=== PATIENT | male | born 1970 | race Caucasian/White ===

== ENCOUNTER 2024-11-14 13:10 | Emergency (ER) | payer OTHER, SELFPAY ==
[2024-11-14 13:48] VITALS: BP 117/76; PULSE 81; RESP 18; TEMP 36.4; O2SAT 96; BMI 33.7
--- NOTE | 2024-11-14 13:50 | CRLHL7_ITS ---
For Patients: As a result of the Century Cures Act, medical imaging exams and procedure reports are released immediately into your electronic medical record. You may view this report before your referring provider. If you have questions, please contact your health care provider. INDICATION: Fall, foot injury TECHNIQUE: Foot radiograph 2 views right COMPARISON: None FINDINGS: Bone: No acute fractures or aggressive bone lesions are identified. Joint: The visualized hindfoot, midfoot, and forefoot joints are unremarkable in appearance. No significant ankle effusion is seen. Soft tissue: Unremarkable. No radiopaque foreign bodies are seen. IMPRESSION: 1. No acute osseous injuries or abnormalities are noted. Prelim Report By Dr. Jose Ramon Sherman @ 11/14/2024 2:52:16 PM ADDENDUM There is an ill-defined 3 mm density along the lateral midfoot near the cuboid. Correlation with physical exam for focal tenderness in this region is recommended to exclude an avulsion fracture fragment. Dictated by: MD @ 11/14/2024 14:54:44 (Electronically Signed)
--- NOTE | 2024-11-14 13:52 | CRLHL7_ITS ---
For Patients: As a result of the Century Cures Act, medical imaging exams and procedure reports are released immediately into your electronic medical record. You may view this report before your referring provider. If you have questions, please contact your health care provider. INDICATION: Fall, ankle injury TECHNIQUE: Ankle radiograph 3 views right COMPARISON: None FINDINGS: Bone: There is an ill-defined 3 mm density along the lateral midfoot near the cuboid. Joint: The ankle mortise joint and the visualized hindfoot joints are unremarkable in appearance. No significant ankle effusion is seen. Soft tissue: The Kager fat pad and the Achilles` tendon are normal in appearance. No radiopaque foreign bodies are seen. IMPRESSION: 1. There is an ill-defined 3 mm density along the lateral midfoot near the cuboid. Correlation with physical exam for focal tenderness in this region is recommended to exclude an avulsion fracture fragment. Dictated by Jose Ramon Sherman MD @ 11/14/2024 2:53:50 PM Dictated by: Jose Ramon Sherman MD @ 11/14/2024 14:53:56 (Electronically Signed)
--- NOTE | 2024-11-14 14:25 | ED.GENADULT ---
HPI - General Adult General Chief complaint: Extremity Pain/Injury, Lower Stated complaint: Right ankle injury Time Seen by Provider: 11/14/24 13:50 History of Present Illness HPI narrative: Patient is a 54-year-old gentleman who turned his ankle getting out of his pickup today. He stepped on uneven ground shortly before coming in. He has pain over the lateral aspect of his malleolus inferiorly but no overt bony pain. He has no foot her knee pain. He has minimal swelling. He is wearing compression stockings. He did not fall and did not hit his head. No skin breakdown. Pain is moderate. Related Data Allergies Allergy/AdvReac Type Severity Reaction Status Date / Time Sulfa (Sulfonamide Allergy Intermediate Rash Verified 11/14/24 13:44 Antibiotics) sulfamethoxazole (From Allergy Intermediate Rash Verified 11/14/24 13:44 Bactrim) trimethoprim (From Bactrim) Allergy Intermediate Rash Verified 11/14/24 13:44 Review of Systems Status of ROS: Reports: 6 or more systems reviewed and unremarkable except as noted in History and below Exam Narrative: Exam Narrative: EXAM GENERAL: Patient appears comfortable and well. EYES: No scleral icterus. LYMPH: No supraclavicular or cervical lymphadenopathy. SKIN: Visible skin seen during exam normal or with benign process only. EXT: No dependent lower extremity pedal edema. No pain to palpation of the right ankle moderate pain with weight-bearing. PSYCH: Good eye contact, speech is not pressured. Const: Vital Signs, click to edit/add: Vital Signs - 24 hr 11/14/24 13:48 Temperature 97.6 F Pulse Rate [Pulse Oximeter] 81 Respiratory Rate 18 Blood Pressure [Ri ght Upper Arm] 117/76 Pulse Oximetry 96 Oxygen Delivery Me thod Room Air Course Course ED Course: X-ray series collected in shows no fractures or dislocations upon my review. This time reassurance is offered. Would recommend continue compression with his compression stocking. Ice Tylenol Motrin advanced activity as tolerated. Follow-up with his primary physician as needed differential diagnosis includes but not limited to sprain strain fracture dislocation. Vital Signs Vital signs: Initial Vital Signs Temperature 97.6 F 11/14/24 13:48 Temperature Source Temporal Artery Scan 11/14/24 13:48 Pulse Rate 81 11/14/24 13:48 Respiratory Rate 18 11/14/24 13:48 Blood Pressure 117/76 11/14/24 13:48 Blood Pressure Mean 89 11/14/24 13:48 Pulse Oximetry 96 11/14/24 13:48 Oxygen Delivery Method Room Air 11/14/24 13:48 Vital Signs Temperature 97.6 F 11/14/24 13:48 Pulse Rate 81 11/14/24 13:48 Respiratory Rate 18 11/14/24 13:48 Blood Pressure 117/76 11/14/24 13:48 Pulse Oximetry 96 11/14/24 13:48 Oxygen Delivery Method Room Air 11/14/24 13:48 Temperature 97.6 F 11/14/24 13:48 Pulse Rate 81 11/14/24 13:48 Respiratory Rate 18 11/14/24 13:48 Blood Pressure 117/76 11/14/24 13:48 Pulse Oximetry 96 11/14/24 13:48 Oxygen Delivery Method Room Air 11/14/24 13:48 Discharge Plan Discharge Clinical Impression: Ankle sprain and strain Patient Disposition: Home, Self-Care Condition: Stable Instructions: Ankle Sprain (ED) Additional Instructions: Continue compression stockings Tylenol Motrin Ice Advance activity as tolerated. Follow-up with your doctor as needed. Activity Level: Activity as Tolerated Discharge Diet: Regular Stand Alone Forms: MyHealth Info Instructions
--- OUTSIDE RECORDS SUMMARY | 2024-11-14 15:10 | XMS_ITS | Clinical Summary ---
Author Organization [facility] Address [address] [place] [id number] Care Team Providers Care Beet Worker Name Role Phone [facility], [facility] Primary Care Provider Unavailable Allergies Active Allergy Reactions Criticality Noted Date Comments Adhesive Tape-Silicones Rash 04/11/2021 Sulfamethoxazole-Trimethoprim Rash 2007 Medications acetaminophen (TYLENOL) 325 mg tablet Take 325-650 mg by mouth every 4 hours if needed. Active albuterol HFA (PRO-AIR; VENTOLIN; PROVENTIL) 90 mcg/actuation inhaler Inhale 2 Puffs by mouth every 4 hours if needed. Active bisacodyL (DULCOLAX) 5 mg delayed release tablet Take 5 mg by mouth once daily if needed. Active cetirizine (ZYRTEC) 10 mg tablet Take 10 mg by mouth once daily. Active flecainide (TAMBOCOR) 100 mg tablet Take 100 mg by mouth every 12 hours. 07/04/20 20 Active multivitamins with minerals tablet Take 1 Tablet by mouth once daily. Active pantoprazole (PROTONIX) 40 mg delayed-release tablet Take 40 mg by mouth once daily. Active testosterone cypionate (DEPO-TESTOSTERON E) 200 mg/mL injection Every 3 weeks Active USTEKINUMAB SUBQ Inject subcutaneous every 8 weeks. 01/01/20 21 Active cholecalciferol, Vitamin D3, 2,000 unit tablet Take 1 Tablet by mouth once daily. 10/21/19 20 Active metoprolol succinate (Toprol XL) 50 mg sustained-release tablet Take 25 mg by mouth once daily. Active fish oil-omega-3 fatty acids (Fish Oil) 1,200-360 mg cap Take 1 Capsule by mouth once daily. One capsule is 1200 mg-360 mg Active Magnesium Oxide 500 mg tab Take 500 mg by mouth once daily. Active mesalamine (CANASA) 1,000 mg suppository Insert 1,000 mg rectally once daily if needed for Other (Specify). Active WalkerIndications :Herniated nucleus pulposus, L5-S1, left Walker with front wheels for home use. 1 Each 04/14/20 21 Active methocarbamoL (ROBAXIN) 750 mg tabletIndications :S/P lumbar spinal fusion Take 1 Tablet (750 mg) by mouth every 6 hours if needed for Muscle Spasm. 20 Tablet 04/15/2021 10:10 AM CDT 04/15/20 21 Active oxyCODONE (ROXICODONE) 5 mg immediate release tabletIndications :S/P lumbar spinal fusion Take 1-2 Tablets (5-10 mg) by mouth every 4 hours if needed for moderate pain. 30 Tablet 04/15/2021 10:10 AM CDT 04/15/20 21 Active sennosides-docusa te (SENOKOT S) (8.6-50 mg) tabletIndications :Acute postoperative pain Take 1-4 Tablets by mouth 2 times daily. 30 Tablet 04/15/2021 11:28 AM CDT 04/15/20 21 Active Active Problems Problem Noted Date Diagnosed Date Herniated nucleus pulposus, L5-S1, left 04/05/20 21 Perirectal abscess 08/27/2011 Ventral hernia 12/01/2010 Ileus, postoperative 05/03/2010 Nausea with vomiting 05/03/2010 RUQ abdominal pain 05/03/2010 Hearing loss 09/12/2009 Major depression, single episode 07/18/2009 Anxiety 06/27/2009 Ulcerative colitis 11/15/2008 Fatigue 11/15/2008 History of tobacco use 06/22/2008 Overview (06/22/2008): Quit 2006; 1 ppd X 15 years Other chest pain 06/22/2008 Overview (06/22/2008): 06/22/08: left sided chest pain; can get worse with exertion Shortness of breath 06/22/2008 Pain in joint, shoulder region Asthma Headache(784.0) Acute postoperative pain Postoperative back pain S/P lumbar spinal fusion Rheumatoid arthritis CFS (chronic fatigue syndrome) ROXANNE on CPAP Class 2 severe obesity with serious comorbidity and body mass index (BMI) of 37.0 to 37.9 in adult Immunizations Immunization Administration Dates Next Due COVID-19 vaccine (Moderna 100mcg/0.5mL) PF, MDV 12/01/2020,11/03/2020 Influenza, IIV3 (Age >=3 years) 12/02/2010 Td (Age >=7 Years) 01/20/2001 Tdap 08/22/2009 Family History Medical History Relation Name Comments Cancer Maternal Grandmother Thyroid Disease Mother Thyroid Disease Sister 2 Relation Name Status Comments Child 1 Alive Child 2 Alive Father Alive Maternal Grandmother Mother Alive Sister 1 Alive Sister 2 Social History Tobacco Use Types Packs/Day Years Used Date Smoking Tobacco: Former Cigarettes 1 15 2009 Smokeless Tobacco: Never Comments:06/22/08: quit 1 ye ar ago (used Chantix) Alcohol Use Standard Drinks/Week Comments Not Currently 0 (1 standard drink = 0.6 oz pur e alcohol) rare Sex and Gender Information Value Date Recorded Sex Assigned at Not on file Legal Sex Male 5:47 AM [employer]NAL [employer] Gender Identity Not on file Sexual Orientation Not on file 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 file Not on file Not on file Obstetrics History Last Filed Vital Signs Vital Sign Reading Time Taken Comments Blood Pressure 125/91 04/15/2021 8:00 AM CDT Pulse 69 04/15/2021 8:00 AM CDT Temperature 36.7 C (98 F) 04/15/2021 8:00 AM CDT Respiratory Rate 18 04/15/2021 8:00 AM CDT Oxygen Saturation 99% 04/15/2021 8:00 AM CDT Inhaled Oxygen Concentration - - Weight 118.7 kg (261 lb 11 oz) 04/12/2021 6:00 A M CDT Height 177.8 cm (5' 10) 04/12/2021 6:00 AM CDT Body Mass Index 37.55 04/12/2021 6:00 AM CDT Plan of Treatment Health Maintenance Due Date Last Done Comments Depression screening for age 12+ 1980 HIV for age 15-65 1983 BMI (ht and wt on same day) for age 18+ 1986 Hepatitis C screening for age 18-79 1986 Colonoscopy through age 75 2013 Lipids for age 45-75 11/21/2014 11/21/2009 Pneumococcal series for age 50+ (1 of 1 - PCV) 2018 Zoster (shingles) series for age 50+ (1 of 2) 2018 Tetanus booster 08/22/2019 08/22/2009, 01/20/2001 COVID-19 vaccine series ( season) 2024 12/01/2020, 11/03/2020 Influenza Vaccine (Season Ended) 2025 12/03/19 11 Tdap Completed 08/22/2009 Medical Devices Implanted Type Area Hydro Operator Device Identifier Shelf Expiration Date Model / Serial / Lot Link Lmbr 40x5.5mm Tsrh 3d Cvd Titnm - [id number] Implanted:Qty: 2 on 04/12/2021 by Amaury Pettit MD at [facility] Spine Implants Spine Medtronic Spine/Ortho [id number] / / Mesh 4x8 Bioresorbable - [id number] Implanted:Qty: 1 on 11/30/2010 at [facility] N/A: Abdomen DAVOL 08/02/2012 [id number] / / [id number] one Matrix 10cc [employer] Putty Dbm Implanted:Qty: 1 on 04/12/2021 by Amaury Pettit MD at [facility] Explanted:at [facility] (Quantity not on file) Spine Medtronic Spine/Ortho 02/12/2024 [id number] / [id number] / [id number] one 1-4mm 30cc Medtronic Chips Canclls Freeze Dried Implanted:Qty: 1 on 04/12/2021 by Amaury Pettit MD at [facility] Explanted:at [facility] (Quantity not on file) Spine Medtronic Spine/Ortho 07/13/2025 [id number] / [id number] / Spacer Lmbr [id number] 10 Deg Elevate Extra-Lordotic Peek Titn - [id number] Implanted:Qty: 1 on 04/12/2021 by Amaury Pettit MD at [facility] Spine [employer] Spine/Ortho 05/08/2028 [id number] / / [id number] Set Screw Lmbr Tsrh 3dx - [id number] Implanted:Qty: 4 on 04/12/2021 by Amaury Pettit MD at [facility] Spine [employer]onic Spine/Ortho [id number] / / Cnnctr Lmbr Sm Tsrh 3dx Offsettitnm - [id number] Implanted:Qty: 4 on 04/12/2021 by Amaury Pettit MD at [facility] Spine [employer]onic Spine/Ortho [id number] / / Screw Lmbr Post 6.5x45mm Tsrh 3dx Og Thin Va - [id number] Implanted:Qty: 1 on 04/12/2021 by Amaury Pettit MD at [facility] Spine [employer] Spine/Ortho [id number] / / Screw Lmbr Post 6.5x50mm Tsrh 3dx Og Thin Va - [id number] Implanted:Qty: 1 on 04/12/2021 by Amaury Pettit MD at [facility] Spine [employer] Spine/Ortho [id number] / / Screw Lmbr Post 7.5x45mm Tsrh 3dx Og Thin Va - [id number] Implanted:Qty: 2 on 04/12/2021 by Amaury Pettit MD at [facility] Spine [employer] Spine/Ortho [id number] / / Procedures Procedure Name Priority Date/Time Associated Diagnosis Comments LIPID PANEL W REFLEX MEASURED LDL Routine 11/21/2009 9:51 AM CDT Elevated cholesterol from Last 3 Months or Most Recently Relevant to Health Maintenance Results * LIPID PANEL W REFLEX MEASURED LDL (11/21/2009 9:51 AM CDT) CHOLESTEROL,TOTAL 190 110 - 199 mg/dL [facility] TRIGLYCERIDES 124 40 - 149 mg/dL [facility] HDL CHOLESTEROL 48 >40 mg/dL [facility] CHOL/HDL RATIO 3.96 <4.51 [facility] LDL CHOLESTEROL 117 <131 mg/dL [facility] PATIENT STATUS Fasting [facility] Blood specimen (specimen) BLOOD SPECIMEN / Unknown 11/21/2009 9:51 AM CDT 11/21/2009 9:43 AM CDT us Brenda QUEZADA CHEMISTRY Final Result [facility] [place]NAL ZIP [id number] [place] [id number] from Last 3 Months or Most Recently Relevant to Health Maintenance Insurance [facility] ADV[employer]AGE PLAN Advance Directives * Full Code (Latest Code Status on File) Date Activated Date Inactivated Comments 04/12/2021 10:53 AM 04/15/2021 2:35 PM Question Answer Comments Code Status Discussion: Not Discussed * Full Code Date Activated Date Inactivated Comments 04/12/2021 5:53 AM 04/12/2021 10:53 AM Question Answer Comments Code Status Discussion: Not Discussed * Full Code Date Activated Date Inactivated Comments 07/14/2015 12:38 PM 07/14/2015 4:46 PM * Full Code Date Activated Date Inactivated Comments 08/27/2011 5:40 PM 08/27/2011 10:44 PM * Full Code Date Activated Date Inactivated Comments 11/30/2010 9:39 AM 12/07/2010 7:16 PM Care Teams Beet Worker Relationship Specialty Start Date End Date Clinic, [facility] PCP - General Family Practice 03/22/21
--- OUTSIDE RECORDS SUMMARY | 2024-11-14 15:10 | XMS_ITS | Clinical Summary ---
Author Organization [facility] Address [address] [place] [id number] Care Team Providers Care Preschool Principal Name Role Phone Mini Moreira MD Primary Care Provider Allergies Active Allergy Reactions Criticality Noted Date Comments Adhesive Tape-Silicones Rash 04/11/2021 Sulfamethoprim Ds Rash 08/24/2014 Nsaids (Non-Steroidal Anti-I nflammatory Drug) Other Low 02/25/2022 Crohns Silicon Rash Low 03/08/2024 Medications testosterone cypionate (DEPO-TESTOSTERON E) 200 mg/mL IM Oil Inject 1 mL (200 mg) into the muscle every 21 (twenty-one) days. Active albuterol HFA 90mcg/puff (PROVENTIL;VENTOL IN HFA) 90 mcg/actuation Inhl Inhale 2 puffs every 4 (four) hours as needed. Active cetirizine (ZYRTEC) 10 mg Oral Tab 1 tablet (10 mg) once daily. 3 6 Active pantoprazole (PROTONIX) 40 mg oral delayed release tablet Take 1 tablet (40 mg) by mouth once daily. 6 Active ustekinumab (STELARA SUBQ) Inject 90 mg under the skin as directed. every 6 weeks. 1 Active Magnesium Oxide 500 mg oral Tab Take 500 mg by mouth once daily. Active simethicone (MYLICON) 80 mg oral chewable tablet 1 tablet (80 mg) every 6 (six) hours as needed. 1 Active buPROPion (WELLBUTRIN) 100 mg oral tablet 1 tablet (100 mg) once daily. 2 Active PARoxetine (PAXIL) 30 mg oral tablet Take 1 tablet (30 mg) by mouth once daily. 2 Active Medical Cannabis Take 600 mg by mouth at bedtime. 300mg capsules 2 Active L.acidophilus/B.b ifidum,longum (PROBIOTIC COLON SUPPORT ORAL) Take 1 capsule by mouth once daily. 2 Active ferrous sulfate (FERATAB) 325 mg (65 mg iron) oral tablet 1 tablet (325 mg) every other day. 2 Active docusate sodium (COLACE) 100 mg oral capsule Take 1 capsule (100 mg) by mouth twice a day. Active cholecalciferol (VITAMIN D3) 400 unit (10 mcg) oral Tab tablet Take 1 tablet (10 mcg) by mouth twice a day. Active acetaminophen (TYLENOL) 500 mg oral tablet Take 2 tablets (1,000 mg) by mouth every 6 (six) hours. 0 2 Active flecainide (TAMBOCOR) 100 mg oral tablet Take 1 tablet (100 mg) by mouth twice a day. 180 tablet 3 3 Active metoprolol succinate, XL, (TOPROL XL) 25 mg oral extended release tablet 24 HRIndications:Par oxysmal atrial fibrillation (HCC) Take 1 tablet (25 mg) by mouth once daily. 90 tablet 3 3 Active gabapentin (NEURONTIN) 300 mg oral capsule 2 capsules (600 mg). 3 Active gabapentin (NEURONTIN) 100 mg oral capsule 12 capsules (1,200 mg) Daily. Active amLODIPine (NORVASC) 2.5 mg oral tablet 4 Active amoxicillin-pot clavulanate (AUGMENTIN) 875-125 mg oral tablet 4 Active citalopram (CELEXA) 10 mg oral tablet Take 1 tablet (10 mg) by mouth Daily. Active diclofenac sodium (VOLTAREN) 1 % Top gel Apply to skin. Active DULoxetine (CYMBALTA) 60 mg oral delayed release capsule Take 1 capsule (60 mg) by mouth Daily. Active Sodium Fluoride 1.1 % Boone cream 4 Active salsalate (DISALCID) 500 mg oral Tab 4 Active sildenafiL (VIAGRA) 25 mg oral tablet 4 Active semaglutide (WEGOVY) 0.5 mg/0.5 mL SubQ pen injector Inject 0.5 mg under the skin every 7 (seven) days. Active Active Problems Problem Noted Date Diagnosed Date Primary hypertension 05/12/2024 Obesity, morbid 05/12/2024 LUA (nonalcoholic steatohepatitis) 09/19/2022 Orthopedic aftercare 07/23/2022 L5-S1 Miscellaneous orthopedic devices assoc w i ncdt, NEC 07/22/2022 Obsessive-compulsive disorder 10/18/2021 Sensorineural hearing loss (SNHL) of both ears 0 09/06/2021 Rheumatoid arthritis 09/06/2021 Kidney disorder 09/06/2021 Gastroesophageal reflux disease 09/06/2021 Decreased testosterone level 09/06/2021 CFS (chronic fatigue syndrome) 09/06/2021 S/P lumbar spinal fusion 04/13/2021 Prediabetes 04/05/2021 Herniated nucleus pulposus, L5-S1, left 04/05/20 21 Chronic atrial fibrillation 06/12/2020 SBO (small bowel obstruction) 11/21/2015 Mild persistent asthma with irreversible airway obstruction without complication 10/06/2015 ROXANNE on CPAP 01/20/2015 Overview (06/06/2022): Setting: CPAP 7 cmH20 [facility] done: 01/19/2015 AHI 28 RDI 29 Lowest O2 Sat: 84% Juan Jose 03/05/2016 CMN 01/25/15 new; 02/01/15 faxed, change to [facility] 12-04-15; 11/22/15 onel ; Moderate Obstructive sleep apnea (adult) Allergic rhinitis 01/06/2015 Hypertriglyceridemia without hypercholesterolemi a 09/16/2013 Overview (03/20/2020): 10 year ASCVD risk is 2.6%, calculated 09/16/2013. Trigs 406. S/P colectomy 09/15/2013 Cervical radiculopathy 06/23/2013 Overview (03/29/2021): Cervical radiculopathy, Left Hearing loss 09/12/2009 Major depression, single episode 07/18/2009 Anxiety 06/27/2009 Crohn's colitis 11/15/2008 History of tobacco use 06/22/2008 Overview (03/20/2020): Quit 2006; 1 ppd X 15 years Immunizations Name Administration Dates Next Due Hep B Adult 08/16/2020 Influenza recombinant (FluBl ok Quadrivalent PF) 06/06/2022,05/11/2019,05/07/2016,2014,04/19/2014 Influenza split virus (Fluzo ne Quadrivalent PF) 06/24/2023,06/06/2022,05/11/2019,2015,06/09/2015,04/19/2014 Influenza split virus quadrivalent 04/11/2020 Moderna 18+ YRS Monovalent C OVID Vaccine (Pantographer) 06/29/2021 Pneumococcal PPSV23 08/16/2020 SPIKEVAX (Moderna) 12+ Yrs M onovalent COVID Vaccine (credentialing specialist) 12/01/2020,12/01/2020,11/03/2020,2020 Td adult absorbed PF (2 Lf) 01/20/2001 Tdap 03/02/2020,08/22/2009,08/02/2009 Zoster Recombinant 10/13/2020,08/16/2020 Family History Medical History Relation Comments Heart Disease Father a fib, watchman procedure Dementia Maternal Grandfather Heart Disease Maternal Grandfather Had [place] in h is late 40's. No Known Problems Maternal Grandmother Breast Cancer Mother Dementia Mother Thyroid Disease Mother hyperthyroid Thyroid Disease Sister 1 hypothyroid No Known Problems Sister 2 Relation Status Comments Father Alive Maternal Grandfather (Age 80) Had [place] in hx of 40's and 50's Maternal Grandmother Alive Mother Alive 75 yo. Had [place] in her early 50's. Sister 1 Alive Sister 2 Alive Social History Tobacco Use Types Packs/Day Years Used Date Smoking Tobacco: Former Cigarettes Q uit: 11/20/2009 Passive Smoke Exposure: Past Smokeless Tobacco: Never Tobacco Cessation:Counseling Given: Not Answered Comments:Quit smoking around 2009. Smoked about a pack a day for 15 years. Alcohol Use Standard Drinks/Week Comments Yes 0 (1 standard drink = 0.6 oz pure alcohol) rare, maybe once every few months PHQ-2 Answer Date Recorded PHQ2 Total 1 12/09/2022 Sex and Gender Information Value Date Recorded Sex Assigned at Male 04/24/2020 8:29 AM CDT Legal Sex Male 7:14 PM NIGHT ORDER SELECTOR Gender Identity Male 04/24/2020 8:29 AM CDT Sexual Orientation Straight 04/24/2020 8: 29 AM CDT Last Filed Vital Signs Vital Sign Reading Time Taken Comments Blood Pressure 124/80 05/06/2024 10:33 AM CDT Pulse 62 10/10/2022 10:32 AM CDT Temperature 36.2 C (97.2 F) 10/10/2022 10:32 AM CDT Respiratory Rate 18 2022 12:29 PM NIGHT ORDER SELECTOR Oxygen Saturation 98% 10/10/2022 10:32 AM CDT Inhaled Oxygen Concentration - - Weight 121.1 kg (267 lb) 05/06/2024 10:33 AM CDT Height 177.8 cm (5' 10) 05/06/2024 10:33 AM CDT Body Mass Index 38.31 05/06/2024 10:33 AM CDT Plan of Treatment Health Maintenance Due Date Last Done Comments Anxiety Follow-Up (SANDEEP-7) 1969 Depression Follow-Up (PHQ-9) 1971 Spirometry 01/24/1973 Pneumococcal 50+ Years (2 of 2 - PCV) 08/16/2021 08/16/2020 Pneumococcal Vaccine (2 of 2 - PCV) 08/16/2021 08/16/2020 Lipid Screening 06/06/2023 06/06/2022, 05/28, 03/29/2021, Additional history exists Yearly Review of HCD 07/16/2023 07/16/2022, 05/21/2022, 08/13/2021, Additional history exists COVID-19 Vaccine (2023-2 5 season) 2024 06/29/2021, 12/01/2020, 12/01/2020, Additional history exists Influenza Vaccine (Season Ended) 2025 06/24/2023, 06/06/2022, 06/06/2022, Additional history exists Diabetes Screening 07/23/2025 07/23/2022, 1 08/06/2021, 06/06/2022, Additional history exists Adult Tetanus Booster 03/02/2030 03/02/2020 , 08/22/2009, 08/02/2009, Additional history exists Colonoscopy 06/08/2030 06/08/2020 RSV Vaccines (1 - 1-dose 75+ series) 2043 Zoster Vaccine Completed 10/13/2020, 08/16/2020 Hepatitis C Screening Completed 03/29/2021 Medical Devices Implanted Type Area Electron Microprobe Operator Device Identifier Shelf Expiration Date Model / Serial / Lot Cancellous Chips 30cc - [id number] Implanted:Qty : 1 on 07/23/2022 by Amaury Pettit MD at [facility] Bone N/A: Spine Lumbar [employer] [id number] 05/08/2026 [id number] / [id number] / Connector Tsrh 3dx Small - [id number] Implanted:Qty : 4 on 07/23/2022 by Amaury Pettit MD at [facility] Connector N/A: Spine Lumbar [employer] Inc [id number] / / Infuse Sm - [id number] Implanted:Qty : 1 on 07/23/2022 by Amaury Pettit MD at [facility] Prosthetic Implant Non-Specific N/A: Spine Lumbar Med[employer] Inc [id number] 04/26/2024 [id number] / / [id number] J Guadalupe Dbf Inject 9cc - [id number] Implanted:Qty : 1 on 07/23/2022 by Amaury Pettit MD at [facility] Prosthetic Implant Non-Specific N/A: Spine Lumbar Med[employer]onic Inc 05/05/2024 [id number] / [id number] / Link Tsr2d Pcut Bent 4.0cmx5.5m - [id number] Implanted:Qty : 2 on 07/23/2022 by Amaury Pettit MD at [facility] Link N/A: Spine Lumbar [employer] Inc [id number] / / Screw Set Tsrh 3dx Flush [place] - [id number] Implanted:Qty : 4 on 07/23/2022 by Amaury Pettit MD at [facility] Screw/[place] N/A: Spine Lumbar Med[employer]onic Inc [id number] / / Spacer Catalyft Long 9mm - [id number] Implanted:Qty : 1 on 07/23/2022 by Amaury Pettit MD at [facility] Spine N/A: Spine Lumbar [employer] Inc [id number] / / Procedures Procedure Name Priority Date/Time Associated Diagnosis Comments GLUCOSE, RANDOM STAT 07/23/2022 7:56 AM NIGHT ORDER SELECTOR LDL CHOLESTEROL, DIRECT Routine 06/06/2022 6:02 PM NIGHT ORDER SELECTOR Hyperlipidemia, unspecified hyperlipidemia type Encounter for screening for lipoid disorders HEP C ANTIBODY Routine 03/29/2021 5:51 PM CDT Encounter for hepatitis C screening test for low risk patient from Last 3 Months or Most Recently Relevant to Health Maintenance Results * Glucose, Random (07/23/2022 7:56 AM NIGHT ORDER SELECTOR) Glucose 106 70 - 110 mg/dL DIMENSION EXL ANALYZER 07/23/2022 8:09 AM NIGHT ORDER SELECTOR [facility] Blood 07/23/2022 7:56 AM NIGHT ORDER SELECTOR 07/23/2022 7:56 AM NIGHT ORDER SELECTOR us Sanya Reyes PA-C CHEMISTRY ORDERABLE Final Result [facility] [address] [place] [address] * LDL CHOLESTEROL, DIRECT (06/06/2022 6:02 PM NIGHT ORDER SELECTOR) LDL Cholesterol, Direct 118.0 0.0 - 130.0 mg/dL [facility] Blood VENOUS BLOOD SPECIMEN / Unknown 06/06/2022 6:02 PM NIGHT ORDER SELECTOR us Mini Moreira MD CHEMISTRY ORDERABLE Final Resul t [facility] [address] [facility] [address] [place] [address], * HEP C ANTIBODY (03/29/2021 5:51 PM CDT) Hepatitis C Antibody Non-React danette Non-React danette [facility] XPT ANALYZER 03/30/2021 2:16 PM CDT [facility] Blood VENOUS BLOOD SPECIMEN / Unknown 03/29/2021 5:51 PM CDT 03/30/2021 12:03 PM CDT us Mini Moreira MD IMMUNOLOGY ORDERABLE Final Resu lt [facility] [address] [place] [address] from Last 3 Months or Most Recently Relevant to Health Maintenance Insurance [id number]-OPTUM [facility] [place] [place] [address] [facility] [employer] Advance Directives For more information, please contact: [phone] * Full Code (Latest Code Status on File) Date Activated Date Inactivated Comments 07/23/2022 12:47 PM 2022 8:18 PM Question Answer Comments How was code status determined? Physician Haroon dozier not discussed * Full Code Date Activated Date Inactivated Comments 11/21/2015 8:12 PM 11/24/2015 5:48 PM Question Answer Comments How was code status determined? Patient * Full Code Date Activated Date Inactivated Comments 07/24/2015 8:55 PM 07/25/2015 8:15 PM Question Answer Comments How was code status determined? PatientFamily Care Teams Preschool Principal Relationship Specialty Start Date End Date Mini Moreira MD [address] [facility] [address] [place] [address] PCP - General Family Medicine 03/08/20
--- OUTSIDE RECORDS SUMMARY | 2024-11-14 15:10 | XMS_ITS | Clinical Summary ---
Author Organization [employer] Address [address] [place] [address] Care Team Providers Care Bag Turner Name Role Phone Unavailable Primary Care Provider Unavailabl e Source Comments You are receiving this document as you are listed as the primary care provider,follow-up provider, or the patient has been referred to you for consultation.This is in compliance with the Medicare andMedicaid EHR Incentive Program,which states Providers who transition their patient to another setting of careor provider of care or refers their patient to another provider of care shouldprovide summary care record for each transition of care or referral. [place] Allergies Active Allergy Reactions Criticality Noted Date Comments Sulfamethoxazole-Trimethoprim Rash 2008 PN: Bactrim Medications ibuprofen (AKA MOTRIN) 800 MG tabletIndicatio ns:Shoulder pain Take 1 tablet by mouth 3 times daily as needed. 100 tablet 4 12/04/19 12 Active pantoprazole (PROTONIX) 40 MG tabletIndicatio ns:Chest pain, unspecified type,REDDY (dyspnea on exertion) Take 1 Tab by mouth daily. 90 Tab 3 05/07/20 16 Active hydrocortisone (HYDROCORTISONE 25 MG) 25 MG suppository Insert 1 Suppository rectally two times daily as needed. 24 Each 11 05/07/20 16 Active sildenafil (REVATIO) 20 MG tabletIndicatio ns:Hypogonadism male (HRC),Erectile dysfunction, unspecified erectile dysfunction type Take 2 tablets as needed 1 hour prior to sexual activity. 20 Tab 11 05/24/20 16 Active Needle, Disp, (HYPODERMIC NEEDLE 38ZQ8-4/2) 18G X 1-1/2Indicatio ns:Hypogonadism male ([facility]) For drawing out testosterone, every 2 weeks. 6 Each 3 05/24/20 16 Active Syringe/Needle, Disp, (SYRINGE 3CC/25GX1) 25G X 1 3 MLIndications:H ypogonadism male ([facility]) Inject 1 Syringe intramuscularly every 14 days. 6 Each 3 05/24/20 16 Active testosterone cypionate (DEPO-TESTOSTER ONE) 200 MG/ML injectionIndica tions:Hypogonad ism male ([facility]),Erectile dysfunction, unspecified erectile dysfunction type Inject 1 mL intramuscularly every 14 days. Patient requests single dose vials. 6 mL 1 07/01/20 16 Active omega-3 fatty acids (MAXEPA,FISHOIL ) 1000 MG capsule Take 2 g by mouth daily. Active multivitamin with minerals (CERTAVITE,MYAD EC) tablet Take 1 Tab by mouth daily. Active cetirizine (ZYRTEC) 10 MG tabletIndicatio ns:Allergic rhinitis, unspecified allergic rhinitis trigger, unspecified rhinitis seasonality Take 1 Tab by mouth daily. 90 Tab 3 08/13/19 17 Active aspirin EC 81 MG enteric coated tablet Take 1 Tab by mouth two times a day. 60 Tab 0 08/15/19 17 Active fluticasone (AKA FLONASE) 50 MCG/ACT nasal solutionIndicat ions:Allergic rhinitis Place 2 sprays into each nostril daily (every 24 hours). Dose is for each nostril. 16 g 11 10/08/19 15 017 Discontin ued(Adver se Reaction) Active Problems Problem Noted Date Diagnosed Date Mild persistent asthma with irreversible airway obstruction without complication 10/06/2015 Obstructive sleep apnea 01/20/2015 Overview (03/19/2017): Setting: CPAP 7 cmH20 Supplied by: Onel Woody PSG done: 01/19/2015 AHI 28 RDI 29 Lowest O2 Sat: 84% Juan Jose 03/05/2016 CMN 01/25/15 new; 02/01/15 faxed, change to [facility] 12-04-15; 11/22/15 arrow ; Moderate Obstructive sleep apnea (adult) Allergic rhinitis due to allergen 01/06/2015 Proteinuria 04/19/2014 Overview (03/28/2016): Has been present on numerous UA's. Ultrasound was normal. Renal panel was unremarkable. Referred to nephrology for rising proteinuria on life insurance screening. Hypertriglyceridemia without hypercholesterolemi a 09/16/2013 Overview (03/28/2016): 10 year ASCVD risk is 2.6%, calculated 09/16/2013. Trigs 406. S/P colectomy 09/15/2013 Cervical radiculopathy 06/23/2013 Overview (03/19/2017): Cervical radiculopathy, Left Muscle spasm 06/23/2013 Rotator cuff syndrome 06/23/2013 Myofascial pain syndrome 06/23/2013 Cervicogenic headache 06/23/2013 Occipital neuralgia 06/23/2013 Shoulder weakness 06/23/2013 Pain in joint, shoulder region 05/19/2013 Hypogonadism male 10/12/2012 Malaise and fatigue 09/30/2012 Overview (03/19/2017): Other malaise and fatigue Resolved Problems Problem Noted Date Diagnosed Date Resolved Date Ventral hernia 11/28/2010 12/05/2011 Overview (03/19/2017): LW Modifier: incisional LW Onset: 07/2010 ; Hernia Ventral NOS Immunizations Immunization Administration Dates Next Due Influenza IIV4 (Quadrivalent) 0.5mL (64389) 04/27,06/09/2015,04/19/2014 TDAP (ADACEL) 08/02/2009 Family History Medical History Relation Name Comments Arthritis Father back surgeries Anesthesia Reaction Mother slow to wake up Cancer, Breast Mother Thyroid Disorder Mother Thyroid Disorder Cousin Cancer, Breast Maternal Aunt Thyroid Disorder Sister Bleeding Disorder Negative Family History Relation Name Status Comments Father Alive Mother Alive Brother Alive Cousin Maternal Aunt Alive Sister Alive Social History Tobacco Use Types Packs/Day Years Used Date Smoking Tobacco: Former Cigarettes 1 10 0 07/28/1995 - 07/28/2005 Smokeless Tobacco: Never Comments:Quit smokin Alcohol Use Standard Drinks/Week Comments Yes 0 (1 standard drink = 0.6 oz pur e alcohol) occasional Sex and Gender Information Value Date Recorded Sex Assigned at Not on file Legal Sex Male 4:29 AM CDT Gender Identity Not on file Sexual Orientation Not on file 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 Not on file Not on file Last Filed Vital Signs Vital Sign Reading Time Taken Comments Blood Pressure 117/72 08/16/2016 7:30 AM BEE WORKER Pulse 78 08/16/2016 7:30 AM BEE WORKER Temperature 36.8 C (98.2 F) 08/16/2016 7:30 AM BEE WORKER Respiratory Rate 17 08/16/2016 7:30 AM BEE WORKER Oxygen Saturation 95% 08/16/2016 7:30 AM BEE WORKER Inhaled Oxygen Concentration - - Weight 112.9 kg (248 lb 12.8 oz) 12/02/2016 7:55 AM CDT Height 177.8 cm (5' 10) 12/02/2016 7:55 AM CDT Body Mass Index 35.7 12/02/2016 7:55 AM CDT Plan of Treatment Health Maintenance Due Date Last Done Comments Colon Cancer Screening Plan Due 1968 Hep C Screening (Preventive Services) 1968 HIV Screening (Preventive Services) 1984 Adult Preventive Visit 1986 HepB Vaccine (1) 1987 PSA Screening Discussion 05/07/2017 016, 05/26/2015, 04/26/2014 Pneumococcal Vaccine 50+ Yrs (1 of 1 - PCV) 2018 Zoster/Shingles Vaccine (1 o f 2) 2018 Cholesterol 09/15/2018 09/15/2013 DTaP/Tdap/Td Vaccine (3 - Tdap) 08/22/2019 08/22/2009, 08/02/2009, 08/02/2009 COVID-19 Vaccine (1 - 2023-2 5 season) 2024 Influenza Vaccine (#1) 2024 6, 06/09/2015, 04/19/2014 HepA Vaccine Aged Out No longer eligi ble based on patient's age to complete this topic Hib Vaccine Aged Out No longer eligi ble based on patient's age to complete this topic IPV (Polio) Vaccine Aged Out No longe r eligible based on patient's age to complete this topic MCV4 Vaccine Aged Out No longer eligi ble based on patient's age to complete this topic Meningococcal B Vaccine Aged Out No l onger eligible based on patient's age to complete this topic Procedures Procedure Name Priority Date/Time Associated Diagnosis Comments PROSTATIC SPECIFIC ANTIGEN(SCREEN) Routine 05/07/2016 9:32 AM CDT Hypogonadism male LIPID PANEL & DIRECT LDL (IF NEEDED) Routine 09/15/2013 6:48 PM BEE WORKER Screening cholesterol level from Last 3 Months or Most Recently Relevant to Health Maintenance Results * Prostatic Specific Antigen Screen (05/07/2016 9:32 AM CDT) Prostate Specific Antigen 0.4 0.0 - 4.0 ng/mL SOFT Comment: The current [employer] method for measuring PSA has been determined to be biased approximately 10% higher than the now-retired Siemens Centaur method used prior to July 11, 2015. The Silver PSA Chemiluminescent immunoassay is used. Results obtained with different test methods or kits cannot be used interchangeably. 05/07/2016 9:32 AM CDT 05/07/2016 11:38 AM CDT Narrative PN SOFT - 05/07/2016 12:15 PM CDT Performed at [address] [address] CLIA number [id number] Cher Ruth APRN, [employer] [facility]_1 Final R esult [address] [address] * (ABNORMAL) Lipid Panel and Direct LDL(If Needed) (09/15/2013 6:48 PM BEE WORKER) Cholesterol 166 0 - 200 mg/dL HP CONVERSION Triglycerides 406(H) 0 - 149 mg/dL HP CONVERSION HDL Cholesterol 35(L) >39 mg/dL HP CONVERSION Cholesterol/HDL Ratio Screen 4.7 HP CONVERSION Hours Fasting 0.5 HP CONVERSION 09/15/2013 6:48 PM BEE WORKER 09/16/2013 8:25 AM BEE WORKER us Cher Ruth APRN, [employer] [facility]_1 Final R esult HP CONVERSION from Last 3 Months or Most Recently Relevant to Health Maintenance Advance Directives * Full Code (Latest Code Status on File) Date Activated Date Inactivated Comments 08/15/2016 6:13 PM 08/16/2016 12:00 PM * Full Code Date Activated Date Inactivated Comments 12/06/2014 12:33 PM 12/06/2014 5:19 PM
--- OUTSIDE RECORDS SUMMARY | 2024-11-14 15:10 | XMS_ITS | Referral Summary ---
Author Organization [employer] [facility] Address [address] [place] [address] Care Team Providers Care Print Room Worker Name Role Phone Remington Lea DO Primary Care Provider [phone] Allergies Active Allergy Reactions Criticality Noted Date Comments Adhesive Tape-Silicones Rash Medium 04/11/2021 Sulfamethoprim Rash Medium 08/26/2019 Nsaids (Non-Steroidal Anti-I nflammatory Drug) Other Low 02/25/2022 Crohns Medications albuterol sulfate (PROVENTIL,VENTOL IN,PROAIR) 90 mcg/actuation inhalation HFA Aerosol Inhaler 2 Puffs by inhalation route if needed in the morning, at noon, in the evening, and before bedtime for shortness of breath. Active cholecalciferol 10 mcg (400 unit) oral tablet Take 1 Tablet (400 Units) by mouth in the morning and 1 Tablet (400 Units) in the evening. Active metoprolol succinate (TOPROL XL) 25 mg oral Tablet Sustained Release 24HR Take 1 Tablet (25 mg) by mouth in the morning. Active pantoprazole (PROTONIX) 40 mg oral Tablet, Delayed Release (E.C.) Take 1 Tablet (40 mg) by mouth daily before breakfast. Active testosterone cypionate (DEPO-TESTOSTERON E) 200 mg/mL intramuscular Oil 1 mL (200 mg) by intramuscular route every 3 weeks. Active ustekinumab (STELARA SUBQ) 90 mg by subcutaneous route every 6 weeks. Due 05/16 Active cetirizine (ZYRTEC) 10 mg oral Tablet Take 1 Tablet (10 mg) by mouth in the morning. Active magnesium ( OXIDE 500 MG = MAGNESIUM 302 MG) 500 mg oral Tablet Take 1 Tablet (500 mg) by mouth in the morning. Active simethicone (ANTI-GAS/80) 80 mg oral Tablet, Chewable Chew and Swallow 1 Tablet (80 mg) by mouth if needed each day for flatulence. 05/23/20 Active gabapentin (NEURONTIN) 300 mg oral Capsule Take 2 Capsules (600 mg) by mouth in the morning and 2 Capsules (600 mg) in the evening. 03/17/20 Active salsalate 500 mg oral tablet Take 3 Tablets (1,500 mg) by mouth in the morning and 3 Tablets (1,500 mg) in the evening. 03/17/20 Active docusate sodium (COLACE) 100 mg oral Capsule Take 1 Capsule (100 mg) by mouth in the morning and 1 Capsule (100 mg) in the evening. 03/17/20 Active buPROPion 100 mg oral SR12 Take 1 Tablet (100 mg) by mouth in the morning and 1 Tablet (100 mg) in the evening. Active DULoxetine 20 mg oral CpDR Take 1 Capsule (20 mg) by mouth in the morning and 1 Capsule (20 mg) in the evening. Active ferrous sulfate 325 mg (65 mg iron) oral Tablet Take 1 Tablet (325 mg) by mouth every other day. Active Lactobacillus rhamnosus GG (CULTURELLE) 5 billion cell oral Powder in Packet Take 1 Packet by mouth in the morning. Active amLODIPine (NORVASC) 2.5 mg oral Tablet Take 1 Tablet (2.5 mg) by mouth. 04/12/20 Active semaglutide (weight loss) (WEGOVY) 0.5 mg/0.5 mL subcutaneous Pen Injector Inject 0.5 mL (0.5 mg) subcutaneously every week. 04/26/20 Active sildenafiL (VIAGRA) 25 mg oral Tablet Take 1 Tablet (25 mg) by mouth if needed each day (erectile dysfunction). Active flecainide (TAMBOCOR) 100 mg oral TabletIndications :Atrial fibrillation with rapid ventricular response (HCC) Take 1 Tablet (100 mg) by mouth in the morning and 1 Tablet (100 mg) in the evening. 05/15/20 Active predniSONE (DELTASONE) 10 mg oral TabletIndications :SBO (small bowel obstruction) (HCC),Crohn's disease of small intestine with complication (HCC) Take 40 mg orally daily x 3 days, then 30 mg daily x 3 days, then 20 mg daily x 3 days, then 10 mg daily x 3 days, then 5 mg daily x 3 days. 32 Tablet 05/16/20 24 Active Active Problems Problem Noted Date Diagnosed Date Partial small bowel obstruction 05/13/2024 Crohn's disease with complication 11/27/2021 Obsessive-compulsive disorder 10/18/2021 Class 2 severe obesity due t o excess calories with serious comorbidity and body mass index (BMI) of 36.0 to 36.9 in adult 10/18/2021 Chronic low back pain 09/06/2021 Decreased testosterone level 09/06/2021 CFS (chronic fatigue syndrome) 09/06/2021 Gastroesophageal reflux disease 09/06/2021 Gastrointestinal hemorrhage 09/06/2021 Kidney disease 09/06/2021 Rheumatoid arthritis 09/06/2021 Sensorineural hearing loss (SNHL) of both ears 0 09/06/2021 ROXANNE on CPAP 09/06/2021 Prediabetes 04/05/2021 Chronic atrial fibrillation 06/12/2020 SBO (small bowel obstruction) 11/21/2015 Asthma with irreversible airway obstruction 09/25 Allergic rhinitis 01/06/2015 Hypertriglyceridemia without hypercholesterolemi a 09/16/2013 Overview (09/06/2021): 10 year ASCVD risk is 2.6%, calculated 09/16/2013. Trigs 406. S/P colectomy 09/15/2013 Cervical radiculopathy 06/23/2013 Overview (09/06/2021): Cervical radiculopathy, Left Ventral hernia 12/01/2010 Major depression, single episode 07/18/2009 Anxiety 06/27/2009 Resolved Problems Problem Noted Date Diagnosed Date Resolved Date Depressive disorder 09/06/2021 09/06/19 Ulcerative colitis 11/15/2008 2 Immunizations Immunization Administration Dates Next Due Tdap Vaccine, IM, (Adacel)(Boostrix) 03/02/2020 Social History Tobacco Use Types Packs/Day Years Used Date Smoking Tobacco: Former Cigarettes Q uit: 2015 Smokeless Tobacco: Never Tobacco Cessation:Counseling Given: Not Answered Alcohol Use Standard Drinks/Week Comments Yes 0 (1 standard drink = 0.6 oz pur e alcohol) occassionally Hunger Vital Sign Answer Date Recorded Within the past 12 months, y ou worried that your food would run out before you got the money to buy more. Never true 05/13/20 24 Within the past 12 months, t he food you bought just didn't last and you didn't have money to get more. Never true 05/13/2024 Housing Stability Vital Sign Answer Damian e Recorded In the last 12 months, was t here a time when you were not able to pay the mortgage or rent on time? No 05/13/2024 Number of Times Moved in the Last Year Not on fi le 05/13/2024 At any time in the past 12 m onths, were you homeless or living in a fci (including now)? No 05/13/2024 Housing Stability Answer Date Recorded In the last 12 months, was t here a time when you were not able to pay the mortgage or rent on time? No 05/13/2024 [address] of Places Lived in the Last Year Not on f ile 05/13/2024 Number of Places Lived in the Last Year (Outpati ent) Not on file 05/13/2024 Number of Places Lived in the Last Year (Inpatie nt) Not on file 05/13/2024 Unstable Housing in the Last Year Not on file 05/13/2024 Depression (PHQ-9) Answer Date Recorded Last PHQ-9 Score Not on file 09/25/2020 Thoughts of self harm Not on file 09/25/2020 Intimate Partner Violence Answer Date R ecorded Are you in a relationship wh ere you are physically hurt, threatened and/or made to feel afraid? No 05/13/2024 Transportation Needs Answer Date Record ed In the past 12 months, has l ack of transportation kept you from medical appointments, meetings, work, or from getting medicines or things needed for daily living? No 05/13/2024 Sex and Gender Information Value Date Recorded Sex Assigned at Not on file Legal Sex Male 10:07 AM MEDICAL DEVICE SALES Gender Identity Not on file Sexual Orientation Not on file Last Filed Vital Signs Vital Sign Reading Time Taken Comments Blood Pressure 127/87 05/15/2024 11:21 AM CDT Pulse 79 05/15/2024 11:21 AM CDT Temperature 36.7 C (98 F) 05/15/2024 11:21 AM CDT Respiratory Rate 18 05/15/2024 11:2 1 AM CDT Oxygen Saturation 98% 05/15/2024 11: 21 AM CDT Inhaled Oxygen Concentration - - Weight 115.8 kg (255 lb 3.2 oz) 05/14/2024 6:45 AM CDT Height 177.8 cm (5' 10) 05/14/2024 6:45 AM CDT Body Mass Index 36.62 05/14/2024 6:45 AM CDT Functional Status * Are you deaf or do you have serious difficulty hearing? Answer Date of Assessment Author No 05/13/2024 1:12 PM CDMir Alexandra RN * Are you blind or do you have serious difficulty seeing, even when wearing glasses? Answer Date of Assessment Author No 05/13/2024 1:12 PM CDT Mir Leary RN * Do you have serious difficulty walking or climbing stairs? Answer Date of Assessment Author No 05/13/2024 1:12 PM Mir Lewis RN * Do you have difficulty dressing or bathing? Answer Date of Assessment Author No 05/13/2024 1:12 PM Mir Lewis RN * Do you have difficulty doing errands alone such as visiting a doctor's office or shopping because of a physical, mental, or emotional condition? Answer Date of Assessment Author No 05/13/2024 1:12 PM LIZAT Mir Leary RN Mental Status * Do you have trouble concentrating, remembering, or making decisions because of a physical, mental, or emotional condition? Answer Entry Date Author No 05/13/2024 1:12 PM Mir Lewis RN Plan of Treatment Not on file Medical Devices Implanted Type Area Forming Process Line Worker Device Identifier Shelf Expiration Date Model / Serial / Lot Internalbrace Hand/Wrist Ligament Aument Arthrex Ar-8978-Cp - [id number] Implanted:Qty: 1 on 06/16/2020 by Marcelino Reddy MD at [facility] [place] Left: Thumb [employer] Inc 04/26/2024 AR-8978- CP / / [id number] Stimulator-2023 Implanted:2023 (Quantity not on file) Stimulator Pelvis Medtronic Inc [id number] / [id number] / Description:Leads are [id number] 0 1.5T 30 minutes of scanning in 90 minute window Need to determine full body or head only eligibility [email or web address] Protocol completed by Katia Cervantes on 07/01/2024. Labral Tape White/Black 1.5mm Arthrex Ar-[id number] - [id number] Implanted:Qty: 1 on 06/16/2020 by Marcelino Reddy MD at [facility] Suture/Staple /Adhesive Left: Thumb [employer]rex Inc 01/24/2025 AR-[id number] / / [id number] Procedures Procedure Name Priority Date/Time Associated Diagnosis Comments STOOL OCCULT BLOOD STAT 10/07/2022 9: 01 PM CDT from Last 3 Months or Most Recently Relevant to Health Maintenance Results * (ABNORMAL) STOOL OCCULT BLOOD (10/07/2022 9:01 PM CDT) Blood Occult, stool Positive(A ) Negative 10/07/2022 9:12 PM CDT [facility] Stool STOOL SPECIMEN / Unknown Non-blood Collection / Unknown 10/07/2022 9:01 PM CDT 10/07/2022 9:10 PM CDT us [facility] BODY FLUIDS AND STOOLS O RDERABLES Final Result [facility] [address] [place] [address], [place] [phone] from Last 3 Months or Most Recently Relevant to Health Maintenance Insurance [employer] Advance Directives * Full Code (Latest Code Status on File) Date Activated Date Inactivated Comments 05/13/2024 1:49 PM 05/15/2024 6:05 PM * Full Code Date Activated Date Inactivated Comments 10/18/2023 4:05 AM 10/19/2023 5:31 PM * Full Code Date Activated Date Inactivated Comments 06/16/2020 11:27 AM 06/16/2020 5:12 PM Care Teams Print Room Worker Relationship Specialty Start Date End Date Remington Lea DO [address] [place] [id number] PCP - General Internal Medicine 04/01/24 Additional Source Comments PLEASE NOTE: Replies to this message will not be received.[facility]
--- OUTSIDE RECORDS SUMMARY | 2024-11-14 15:10 | XMS_ITS | Encounter Summary ---
Author Organization [facility] Address [address] [place] [address] Care Team Providers Care Certified Medical Biller Name Role Phone Mini Moreira MD Primary Care Provider Encounter Details Date Type Department Care Team (Late st Contact Info) Description 08/13/2021 Prep For Procedure [facility] [place] [address] [place] [address] [address] [place], [place] [address] Tiago Dickinson MD [address] [facility] [address] [place] [address] Social History Tobacco Use Types Packs/Day Years Used Date Smoking Tobacco: Former Cigarettes Q uit: 11/20/2009 Smokeless Tobacco: Never Comments:Quit smoking around 2009. Smoked about a pack a day for 15 years. Alcohol Use Standard Drinks/Week Comments Yes 0 (1 standard drink = 0.6 oz pur e alcohol) occ PHQ-2 Answer Date Recorded PHQ9 Total Score, calculated 6 06/2020 Sex and Gender Information Value Date Recorded Sex Assigned at Male 04/24/2020 8:29 AM CDT Legal Sex Male 7:14 PM WOOL GRADER Gender Identity Male 04/24/2020 8:29 AM CDT Sexual Orientation Straight 04/24/2020 8: 29 AM CDT COVID-19 Exposure Response Date Recorded In the last month, have you been in contact with someone who was confirmed or suspected to have Coronavirus / COVID-19? No / Unsure 08/13/2021 7:59 AM WOOL GRADER documented as of this encounter Plan of Treatment Not on file documented as of this encounter Visit Diagnoses Not on filedocumented in this encounter Care Teams Certified Medical Biller Relationship Specialty Start Date End Date Mini Moreira MD [address] [facility] [address] [place] [address] PCP - General Family Medicine 03/08/20 documented as of this encounter
--- OUTSIDE RECORDS SUMMARY | 2024-11-14 15:11 | XMS_ITS | Referral Summary ---
Author Organization [facility] Address [address] [place] [address] Care Team Providers Care Guideman Name Role Phone Mini Moreira MD Primary Care Provider [phone] Allergies Active Allergy Reactions Criticality Noted Date [...] mouth Daily. Active Sodium Fluoride 1.1 % [place] cream 4 Active salsalate (DISALCID) 500 mg [...] Setting: CPAP 7 cmH20 [facility] done: 01/19/2015 AHI 28 RDI [...] Moderna 18+ YRS Monovalent C OVID Vaccine (Drop Hammer Mechanic) 06/29/2021 Pneumococcal PPSV23 08/16/2020 SPIKEVAX (Moderna) 12+ Yrs M onovalent COVID Vaccine (civil preparedness coordinator) 12/01/2020,12/01/2020,11/03/2020,2020 Td adult absorbed PF (2 Lf) 01/20/2001 Tdap 03/02/2020,08/22/2009,08/02/2009 Zoster Recombinant 10/13/2020,08/16/2020 Social History Tobacco Use Types Packs/Day Years [...] AM CDT Legal Sex Male 7:14 PM COPPER MINER BLASTING Gender Identity Male 04/24/2020 8:29 AM CDT Sexual Orientation Straight 04/24/2020 8: 29 AM CDT Last Filed Vital Signs Vital Sign Reading Time Taken Comments Blood Pressure 124/80 05/06/2024 10:33 AM CDT Pulse 62 10/10/2022 10:32 AM CDT Temperature 36.2 C (97.2 F) 10/10/2022 10:32 AM CDT Respiratory Rate 18 2022 12:29 PM COPPER MINER BLASTING Oxygen Saturation 98% 10/10/2022 10:32 AM CDT Inhaled Oxygen Concentration - - Weight 121.1 kg (267 lb) 05/06/2024 10:33 AM CDT Height 177.8 cm (5' 10) 05/06/2024 10:33 AM CDT Body Mass Index 38.31 05/06/2024 10:33 AM CDT Plan of Treatment Not on file Medical Devices Implanted Type Area Windows Server Architect Device Identifier Shelf Expiration Date Model / Serial / Lot Cancellous Chips 30cc - [id number] Implanted:Qty : 1 on 07/23/2022 by Amaury Pettit MD at [facility] Bone N/A: Spine Lumbar Medtronic Inc [id number] 05/08/2026 [id number] / [id number] / Connector Tsrh 3dx Small - [id number] Implanted:Qty : 4 on 07/23/2022 by Amaury Pettit MD at [facility] Connector N/A: Spine Lumbar Medtronic Inc [id number] / / Infuse Sm - [id number] Implanted:Qty : 1 on 07/23/2022 by Amaury Pettit MD at [facility] Prosthetic Implant Non-Specific N/A: Spine Lumbar Medtronic Inc [id number] 04/26/2024 [id number] / / [id number] [place] Dbf Inject 9cc - [id number] Implanted:Qty : 1 on 07/23/2022 by Amaury Pettit MD at [facility] Prosthetic Implant Non-Specific N/A: Spine Lumbar Medtronic Inc 05/05/2024 [id number] / [id number] / Link Tsr2d Pcut Bent 4.0cmx5.5m - [id number] Implanted:Qty : 2 on 07/23/2022 by Amaury Pettit MD at [facility] Link N/A: Spine Lumbar Medtronic Inc [id number] / / Screw Set Tsrh 3dx Flush [place] - [id number] Implanted:Qty : 4 on 07/23/2022 by Amaury Pettit MD at [facility] Screw/[place] N/A: Spine Lumbar Medtronic Inc [id number] / / Spacer Catalyft Long 9mm - [id number] Implanted:Qty : 1 on 07/23/2022 by Amaury Pettit MD at [facility] Spine N/A: Spine Lumbar Medtronic Inc [id number] / / Procedures Procedure Name Priority Date/Time Associated Diagnosis Comments GLUCOSE, RANDOM STAT 07/23/2022 7:56 AM COPPER MINER BLASTING LDL CHOLESTEROL, DIRECT Routine 06/06/2022 6:02 PM COPPER MINER BLASTING Hyperlipidemia, unspecified hyperlipidemia type Encounter for screening for lipoid disorders HEP C ANTIBODY Routine 03/29/2021 5:51 PM CDT Encounter for hepatitis C screening test for low risk patient from Last 3 Months or Most Recently Relevant to Health Maintenance Results * Glucose, Random (07/23/2022 7:56 AM COPPER MINER BLASTING) Glucose 106 70 - 110 mg/dL DIMENSION EXL ANALYZER 07/23/2022 8:09 AM COPPER MINER BLASTING [facility] Blood 07/23/2022 7:56 AM COPPER MINER BLASTING 07/23/2022 7:56 AM COPPER MINER BLASTING us Sanya Reyes PA-C CHEMISTRY ORDERABLE Final Result [facility] [address] [place] [address] * LDL CHOLESTEROL, DIRECT (06/06/2022 6:02 PM COPPER MINER BLASTING) LDL Cholesterol, Direct 118.0 0.0 - 130.0 mg/dL [facility] Blood VENOUS BLOOD SPECIMEN / Unknown 06/06/2022 6:02 PM COPPER MINER BLASTING Mini Moreira MD CHEMISTRY ORDERABLE Final Resul t [facility] [address] [place] [address], * HEP C ANTIBODY (03/29/2021 5:51 PM CDT) Hepatitis C Antibody Non-React danette Non-React danette [facility] XPT ANALYZER 03/30/2021 2:16 PM CDT [facility] Blood VENOUS BLOOD SPECIMEN / Unknown 03/29/2021 5:51 PM CDT 03/30/2021 12:03 PM CDT Mini Moreira MD IMMUNOLOGY ORDERABLE Final Resu lt [facility] [address] [place] [address] from Last 3 Months or Most Recently Relevant to Health Maintenance [place] [address] [place] [address]-[employer] [facility] [email or web address] [place] [employer] Advance Directives For more information, please contact: [phone] * Full Code (Latest Code Status on File) Date Activated Date Inactivated Comments 07/23/2022 12:47 PM 2022 8:18 PM Question Answer Comments How was code status determined? Physician Determ jacoby not discussed * Full Code Date Activated Date Inactivated Comments 11/21/2015 8:12 PM 11/24/2015 5:48 PM Question Answer Comments How was code status determined? Patient * Full Code Date Activated Date Inactivated Comments 07/24/2015 8:55 PM 07/25/2015 8:15 PM Question Answer Comments How was code status determined? PatientFamily Care Teams Guideman Relationship Specialty Start Date End Date Mini Moreira MD [address] [facility] [address] [place] [address] PCP - General Family Medicine 03/08/20
--- OUTSIDE RECORDS SUMMARY | 2024-11-14 15:11 | XMS_ITS | Clinical Summary ---
Author Organization [facility] Address [address] [place] [address] Care Team Providers Care Derrick Engineer Name Role Phone Remington Lea Primary Care Provider [phone] Allergies Active Allergy Reactions Criticality Noted Date Comments Adhesive Tape Rash Medium 04/11/2021 Nsaids Other (See Comments) Low 02/25/2022 Crohns Seasonal Allergies 03/08/2024 Silicon Rash Low 03/08/2024 Sulfa Antibiotics Low 05/10/2013 Sulfamethoxazole-Trimethopr im Rash Medium 09/21/2007 PN: Bactrim Medications citalopram (CELEXA) 10 MG tablet Take 10 mg by mouth daily Active buPROPion (WELLBUTRIN SR) 100 MG 12 hr tablet Take 100 mg by mouth 2 times daily Active cetirizine (ZYRTEC) 10 MG tablet Take 10 mg by mouth daily Active CHOLECALCIFERO L PO Active diclofenac (VOLTAREN) 1 % topical gel Apply topically 4 times daily Active docusate sodium (COLACE) 100 MG capsule Take 100 mg by mouth 2 times daily Active DULoxetine (CYMBALTA) 60 MG capsule Take 60 mg by mouth daily Active flecainide (TAMBOCOR) 100 MG tablet Take 100 mg by mouth 2 times daily Active gabapentin (NEURONTIN) 300 MG capsule Take 300 mg by mouth 3 times daily Active Magnesium Oxide -Mg Supplement 500 MG TABS Active metoprolol succinate ER (TOPROL XL) 25 MG 24 hr tablet Take 25 mg by mouth daily Active NALTREXONE HCL PO Take 4.5 mg by mouth daily Active pantoprazole (PROTONIX) 40 MG EC tablet Take 40 mg by mouth daily Active propylene glycol (SYSTANE BALANCE) 0.6 % SOLN ophthalmic solution 1 drop Active salsalate (DISALCID) 500 MG tablet Take 500 mg by mouth 2 times daily Active sildenafil (VIAGRA) 25 MG tablet Take 25 mg by mouth daily as needed Active testosterone cypionate (DEPOTESTOSTER ONE) 200 MG/ML injection Inject 50 mg into the muscle every 14 days Active ustekinumab (STELARA) 90 MG/ML Inject 90 mg subcutaneously once Active Active Problems No known active problems Social History Tobacco Use Types Packs/Day Years Used Date Smoking Tobacco: Former Cigarettes Q uit: 2007 Smokeless Tobacco: Never Tobacco Cessation:Counseling Given: Not Answered Alcohol Use Standard Drinks/Week Comments Yes 0 (1 standard drink = 0.6 oz pur e alcohol) SOCIAL Sex and Gender Information Value Date Recorded Sex Assigned at Not on file Legal Sex Male 4:32 AM SCRAP BREAKER Gender Identity Not on file Sexual Orientation Not on file Last Filed Vital Signs Vital Sign Reading Time Taken Comments Blood Pressure 152/93 03/11/2024 11:10 AM CDT Pulse 92 03/11/2024 10:00 AM CDT Temperature 36.8 C (98.3 F) 03/11/2024 10:00 AM CDT Respiratory Rate 16 03/11/2024 11:1 0 AM CDT Oxygen Saturation 95% 03/11/2024 11: 10 AM CDT Inhaled Oxygen Concentration - - Weight 121.9 kg (268 lb 12.8 oz) 03/11/2024 5:48 AM CDT Height 177.8 cm (5' 10) 03/11/2024 5:48 AM CDT Body Mass Index 38.57 03/11/2024 5:48 AM CDT Plan of Treatment Health Maintenance Due Date Last Done Comments ADVANCE CARE PLANNING 1968 ANNUAL REVIEW OF HM ORDERS 1968 CT COLONOGRAPHY 1968 FIT 1968 FLEX SIG 1968 sDNA (Cologuard) 1968 COLONOSCOPY 1978 COLORECTAL CANCER SCREENING 1978 HIV SCREENING 1983 LIPID 2008 DIABETES SCREENING 10/12/2010 10/13/2007 HEPATITIS B IMMUNIZATION (2 of 3 - 19+ 3-dose series) 09/13/2020 08/16/2020 YEARLY PREVENTIVE VISIT 06/06/2023 06/06/2022 COVID-19 Vaccine ( season) 2024 06/29/2021, 12/01/2020, 11/03/2020 INFLUENZA VACCINE (#1) 2024 3, 06/06/2022, 04/11/2020, Additional history exists PHQ-2 (once per calendar year) 2024 DTAP/TDAP/TD IMMUNIZATION (5 - Td or Tdap) 03/02/2030 03/02/2020, 01/24/2017, 08/22/2009, Additional history exists ZOSTER IMMUNIZATION Completed 10/13/2020, HEPATITIS C SCREENING Completed 03/29/2021 Pneumococcal Vaccine: 50+ Years Completed 02/01/2022, 08/16/2020 HPV IMMUNIZATION Aged Out No longer e ligible based on patient's age to complete this topic MENINGITIS IMMUNIZATION Aged Out No l onger eligible based on patient's age to complete this topic Medical Devices Implanted Type Area Recovery Analyst Device Identifier Shelf Expiration Date Model / Serial / Lot Imp Lead Kit Vectris Scs Compact Surescan [id number] - [id number] Implanted:Qty: 1 on 03/11/2024 by Wilfred Carson MD at [facility] Leads N/A: Spine Lumbar [employer] 02/04/2028 [id number] / / [id number] Imp Lead Kit Vectris Scs Compact Surescan [id number] - [id number] Implanted:Qty: 1 on 03/11/2024 by Wilfred Carson MD at [facility] Leads N/A: Spine Lumbar [employer] 02/04/2028 [id number] / / [id number] Inceptiv Implanted:Qty: 1 on 03/11/2024 by Wilfred Carson MD at [facility] Stimulator (IR) Right: Buttocks [employer] 01/22/2025 [id number] / [id number] / Tyrx Neuro Absorbable Antibacterial Enelope Implanted:Qty: 1 on 03/11/2024 by Wilfred Carson MD at [facility] Right: Buttocks [employer] 11/20/2024 [id number] / / [id number] Procedures Procedure Name Priority Date/Time Associated Diagnosis Comments COMPREHENSIVE METABOLIC PANEL Routine 10/13/2007 8:44 AM CDT from Last 3 Months or Most Recently Relevant to Health Maintenance Results * (ABNORMAL) Comprehensive metabolic panel (10/13/2007 8:44 AM CDT) Sodium 140 133 - 144 mmol/L [facility] Potassium 4.3 3.4 - 5.3 mmol/L [facility] Chloride 102 94 - 109 mmol/L [facility] Carbon Dioxide 28 20 - 32 mmol/L [facility] Glucose 128(H) 60 - 99 mg/dL [facility] Urea Nitrogen 11 5 - 24 mg/dL [facility] Creatinine 1.20 0.80 - 1.50 mg/dL [facility] GFR Estimate 72 >60 mL/min/1.7 m2 M[facility]YS GFR Estimate If Black 87 >60 mL/min/1.7 m2 [facility] Calcium 9.4 8.5 - 10.4 mg/dL [facility] AST 26 0 - 55 U/L [facility] Protein Total 7.3 6.0 - 8.2 g/dL [facility] Anion Gap 10 6 - 17 mmol/L [facility] Albumin 4.7(H) 3.3 - 4.6 g/dL [facility] ALT 27 0 - 70 U/L [facility] Alkaline Phosphatase 52 40 - 150 U/L [facility] Bilirubin Total 0.7 0.2 - 1.3 mg/dL [facility] 10/13/2007 8:44 AM CDT 10/13/2007 4:29 AM CDT us Concha Moya DO LAB - BLOOD ORDERABLES Final Result [facility] from Last 3 Months or Most Recently Relevant to Health Maintenance Insurance MEDICA CHOICE A CHOICE Care Teams Derrick Engineer Relationship Specialty Start Date End Date Remington Lea [facility] [address] [place] [address] PCP - General Internal Medicine 02/06/24
--- OUTSIDE RECORDS SUMMARY | 2024-11-14 15:11 | XMS_ITS | Clinical Summary ---
Author Organization [facility] Address [address] [place] [address] Care Team Providers Care Bending Machine Set Up Operator Name Role Phone Remington Lea DO Primary Care Provider [phone] Allergies Active Allergy Reactions Criticality Noted Date [...] Next Due Tdap Vaccine, IM, (Adacel)(Boostrix) 03/02/2020 Family History Medical History Relation Name Comments Unknown History Father Breast Cancer Maternal Aunt Heart attack Maternal Grandfather No Known Problems Maternal Grandmother Cancer (other) Maternal Uncle Breast Cancer Mother Thyroid cancer Mother Unknown History Paternal Grandfather Unknown History Paternal Grandmother Thyroid cancer Sister half Relation Name Status Comments Father Maternal Aunt Maternal Grandfather Maternal Grandmother Maternal Uncle Mother Paternal Grandfather Paternal Grandmother Sister half Alive Social History Tobacco Use Types Packs/Day [...] any time in the past 12 m [facility], were you homeless or living in a retirement (including now)? 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 Gender Identity Not on file Sexual Orientation [...] Mass Index 36.62 05/14/2024 6:45 AM CDT Plan of Treatment Health Maintenance Due Date Last Done Comments Hepatitis C Testing 1968 Depression Screening [address] Colonography 2013 Colonoscopy 2013 Fecal Immunochemical DNA Test (FIT-DNA) 2013 Hepatitis B Vaccines (2 of 3 - 19+ 3-dose series) 09/13/2020 08/16/2020 Colorectal Cancer Screening 10/08/2023 Fecal Immunochemical Test (FIT) 10/08/2023 10/07/2022 COVID-19 Vaccine ( season) 2024 Lipids Standard 06/06/2027 06/06/2022, 03/29/2021 DTaP/Tdap/Td Vaccines (6 - Td or Tdap) 03/02/2030 03/02/2020, 01/24/2017, 08/22/2009, Additional history exists Respiratory Syncytial Virus (RSV) Vaccine (1 - 1-dose 75+ series) 2043 Varicella Zoster Sequential Completed 10/13/2020, 0 08/16/2020 Pneumococcal Vaccine (50+ Years) Completed 02/01/2022, 08/16/2020 Influenza Vaccine Completed 04/19/2024, , 06/06/2022, Additional history exists HIB Vaccines Aged Out No longer eligi ble based on patient's age to complete this topic HPV Vaccines Aged Out No longer eligi ble based on patient's age to complete this topic Hepatitis A Vaccines Aged Out No long er eligible based on patient's age to complete this topic Meningococcal B Vaccines Aged Out No longer eligible based on patient's age to complete this topic Meningococcal Vaccines Aged Out No lo nger eligible based on patient's age to complete this topic Medical Devices Implanted Type Area Referral Specialist Device Identifier Shelf Expiration Date Model / Serial / Lot Internalbrace Hand/Wrist Ligament Aument Ar[employer]rex [id number] - [id number] Implanted:Qty: 1 on 06/16/2020 by Marcelino Reddy MD at [facility] [place] Left: Thumb [employer] 04/26/2024 AR-8978- CP / / [id number] Stimulator-2023 Implanted:2023 (Quantity not on file) Stimulator Pelvis [employer] [id number] / [id number] / Description:Leads are [id number] 1.5T 30 minutes of scanning in 90 minute window Need to determine full body or head only eligibility [email or web address] Protocol completed by Katia Cervantes on 07/01/2024. Labral Tape White/Black 1.5mm Ar[employer]rex [id number] - [id number] Implanted:Qty: 1 on 06/16/2020 by Marcelino Reddy MD at [facility] Suture/Staple /Adhesive Left: Thumb [employer] 01/24/2025 [id number] / / [id number] Procedures Procedure Name Priority Date/Time Associated Diagnosis Comments STOOL OCCULT BLOOD STAT 10/07/2022 9: 01 PM CDT from Last 3 Months or Most Recently Relevant to Health Maintenance Results * (ABNORMAL) STOOL OCCULT BLOOD (10/07/2022 9:01 PM CDT) Blood Occult, stool Positive(A ) Negative 10/07/2022 9:12 PM CDT [facility] Stool STOOL SPECIMEN / Unknown Non-blood Collection / Unknown 10/07/2022 9:01 PM CDT 10/07/2022 9:10 PM CDT us Roger Jae Mesa PAC LAB BODY FLUIDS AND STOOLS O RDERABLES Final Result [facility] [address] [place] [address], [place] [phone] from Last 3 Months or Most Recently [...] 11:27 AM 06/16/2020 5:12 PM Care Teams Bending Machine Set Up Operator Relationship Specialty Start Date End Date Remington Lea DO [facility] [place] [address] PCP - General Internal Medicine 04/01/24 Additional Source Comments PLEASE NOTE: Replies to this message will not be received.[facility] and [facility]
== END 2024-11-14 15:11 | disposition home or self-care (01) ==
LOC: ED 15:08
PROVIDERS: Emergency Provider Internal Medicine
DX: S93.401A Sprain of unspecified ligament of right ankle, initial encounter (principal); X50.9XXA Other and unspecified overexertion or strenuous movements or postures, initial encounter
CPT/HCPCS: 73610; 73620; 99283; 99284